=== PATIENT | female | born 1940 | race Caucasian/White ===

== ENCOUNTER 2023-05-09 15:02 | Outpatient (RCR) | payer OTHER, SELFPAY | END 2023-05-09 23:59 | disposition home or self-care (01) | LOC: RPT 15:02 | PROVIDERS: ATTENDING PHYSICIAN Student in an Organized Health Care Education/Training Program; FAMILY PHYSICIAN Internal Medicine | DX: Z47.89 Encounter for other orthopedic aftercare (principal); R26.2 Difficulty in walking, not elsewhere classified | CPT/HCPCS: 97010; 97110; 97140 ==

== ENCOUNTER 2023-06-11 14:09 | Outpatient (RCR) | payer OTHER, SELFPAY | END 2023-06-13 23:59 | disposition home or self-care (01) | LOC: RPT 14:09 | PROVIDERS: ATTENDING PHYSICIAN Pain Medicine Interventional Pain Medicine; FAMILY PHYSICIAN Internal Medicine | DX: M54.12 Radiculopathy, cervical region (principal); M54.16 Radiculopathy, lumbar region; Z73.6 Limitation of activities due to disability; M62.81 Muscle weakness (generalized); Z98.1 Arthrodesis status | CPT/HCPCS: 97110; 97112; 97140; 97163 ==

== ENCOUNTER 2023-06-13 12:47 | Outpatient (RCR) | payer OTHER, SELFPAY | END 2023-06-13 23:59 | disposition home or self-care (01) | LOC: RPT 12:47 | PROVIDERS: ATTENDING PHYSICIAN Student in an Organized Health Care Education/Training Program; FAMILY PHYSICIAN Internal Medicine | DX: Z47.89 Encounter for other orthopedic aftercare (principal) | CPT/HCPCS: 97110; 97140 ==

== ENCOUNTER 2023-06-18 09:00 | Outpatient (RCR) | payer OTHER, SELFPAY | END 2023-06-18 23:59 | disposition home or self-care (01) | LOC: RPT 09:00 | PROVIDERS: ATTENDING PHYSICIAN Pain Medicine Interventional Pain Medicine; FAMILY PHYSICIAN Internal Medicine | DX: Z47.89 Encounter for other orthopedic aftercare (principal) | CPT/HCPCS: 97010; 97110; 97140 ==

== ENCOUNTER 2023-07-03 10:46 | Outpatient (RCR) | payer OTHER, SELFPAY | END 2023-07-03 23:59 | disposition home or self-care (01) | LOC: RPT 10:46 | PROVIDERS: ATTENDING PHYSICIAN Student in an Organized Health Care Education/Training Program; FAMILY PHYSICIAN Internal Medicine | DX: Z47.89 Encounter for other orthopedic aftercare (principal); Z73.6 Limitation of activities due to disability; R26.2 Difficulty in walking, not elsewhere classified; M62.81 Muscle weakness (generalized) | CPT/HCPCS: 97110; 97112; 97140 ==

== ENCOUNTER → 2023-08-14 14:31 | Outpatient (REF) | payer OTHER, SELFPAY | LOC: PAVMRI 14:31 | PROVIDERS: ATTENDING PHYSICIAN Psychiatry & Neurology Neurology; FAMILY PHYSICIAN Internal Medicine | DX: M54.50 Low back pain, unspecified (principal); M54.17 Radiculopathy, lumbosacral region | CPT/HCPCS: 72158; A9575 ==

== ENCOUNTER → 2023-10-19 13:28 | Outpatient (REF) | payer OTHER, SELFPAY | LOC: WDC 13:28 | PROVIDERS: ATTENDING PHYSICIAN Family Medicine | DX: Z12.31 Encounter for screening mammogram for malignant neoplasm of breast (principal); Z78.0 Asymptomatic menopausal state | CPT/HCPCS: 77080 ==

== ENCOUNTER → 2023-10-22 09:15 | Outpatient (REF) | payer OTHER, SELFPAY | LOC: RCS 09:15 | PROVIDERS: ATTENDING PHYSICIAN Family Medicine | DX: R00.2 Palpitations (principal) | CPT/HCPCS: 93225; 93226 ==

== ENCOUNTER → 2023-10-29 07:21 | Outpatient (REF) | payer OTHER, SELFPAY | LOC: HWRCS 07:21 | PROVIDERS: ATTENDING PHYSICIAN Family Medicine | DX: R00.2 Palpitations (principal); I34.1 Nonrheumatic mitral (valve) prolapse | CPT/HCPCS: 93306 ==

== ENCOUNTER 2024-03-28 05:16 | Emergency (ER) | payer OTHER, SELFPAY ==
[2024-03-28 05:19] VITALS: BP 121/76
--- NOTE | 2024-03-28 06:08 | ED.GENMED ---
History of Present Illness
<Radha Coleman MD, Resident - Last Filed: 03/28/24 08:45>
General
Chief Complaint: Abdominal Pain
Source: patient
Exam Limitations: none
Time Seen by Provider: 03/28/24 06:03
Nursing documentation reviewed up to this point in time: agreed with
History of Present Illness
History of Present Illness:
83-year-old female with past medical history significant for chronic back pain, ex-smoker, COVID, impaired vision presents to the hospital for evaluation of sudden onset left-sided abdominal pain. Her pain started about 2 days ago, sharp shooting,
intermittent, radiating into the right side of her abdomen occasionally, initially tolerable but 10/10 in intensity overnight which brought her to the emergency room. Her abdominal pain is associated with nausea but no emesis, and bowel movements
that are black and tarry in color. Her last meal was yesterday night, and her last bowel movement was yesterday morning. She she feels mildly bloated and burps occasionally over the last 2 days. However she denies having fevers, chills, sick
contacts, headaches, chest pain, palpitations, shortness of breath, syncopal or near syncopal episodes, bladder habit changes.
She reports to have chronic back pain and does not know if her back pain is causing her abdominal pain.
She traveled to [facility] for 2 weeks and return from her trip 2 weeks ago, her flights for 17 hours long.
If applicable-neuro sx onset
Onset of symptoms known: No
Time pt last seen normal is known: No
Past History
<Radha Coleman MD, Resident - Last Filed: 03/28/24 08:45>
Past History
ED Past Medical History: Other (Chronic back pain, COVID)
ED Past Surgical History: Other (Bilateral total knee replacement, back surgeries times 07/02/1992, 2005, tubal ligation, tonsillectomy, foot surgery on the left.)
Patient has exhibited threatening behavior?: No
Social History
Tobacco: Former smoker
Alcohol: Occasional
Drug: None
Personal:
Living: with family
Employment: Retired
Family History
Family History: Other (Not pertinent)
Review of Systems
<Radha Coleman MD, Resident - Last Filed: 03/28/24 08:45>
Review of Systems
Allergies reviewed?: Yes
Constitutional: Reports no symptoms
EENT: Reports no symptoms
Respiratory: Reports no symptoms
Cardiac: Reports no symptoms
ABD/GI: Reports abdominal pain, nausea and black stools
: Reports no symptoms
Musculoskeletal: Reports neck pain (radiating into her left arm.) and back pain
Skin: Reports no symptoms
Neurological: Reports no symptoms
Endocrine: Reports no symptoms
Hematologic/Lymphatic: Reports no symptoms
Psychiatric: Reports no symptoms
Phy Exam
<Radha Coleman MD, Resident - Last Filed: 03/28/24 08:45>
General Physical Exam
General Presentation: well appearing and no apparent distress
General Skin: warm
General Habitus: normal
General Mental: alert
General Hydration: appears well hydrated
ENT Exam
ENT Exam: pharynx normal and neck supple
Cardiovascular Exam
Cardiovascular Exam: regular rate/rhythm, no edema, no gallop, no murmur and normal peripheral pulses
Heart Sounds: normal
Pulmonary Exam
Pulmonary Exam: lungs clear, no respiratory distress, no rales, no crackles and no rhonchi
Gastrointestinal Exam
Gastrointestinal Exam: normal bowel sounds, non tender, soft, no pulsatile mass and non distended
Rectal Exam: normal sphincter tone, hemorrhoids and soft stool
Stool: brown
Guaiac Status: negative
Neurological Exam
Neurological Exam: alert and no motor deficits
Musculoskeletal Exam
Musculoskeletal Exam: neck pain
Course
<Radha Coleman MD, Resident - Last Filed: 03/28/24 08:45>
Orders/Labs/Results
Orders:
Orders
03/28/24 05:29
IV Insert/Care/Rem.- Treatment PRN
Urinalysis Reflex To Culture Urgent
Date Specimen was Collected: 03/28/24
Time Specimen was Collected: 05:29
03/28/24 06:12
Complete Blood Count/With Diff Urgent
Comprehensive Metabolic Panel Urgent
Lipase Urgent
03/28/24 06:46
CT Abd/pelvis W Iv Cont Urgent
Comment:
Reason For Exam: LLQ pain
Ketorolac [Toradol] 15 mg IV NOW STA
Abnormal Lab Results
03/28/24
06:12
WBC 12.0 H 10^3/uL
(4.8-10.8)
Absolute Neuts (auto) 9.7 H 10^3/uL
(1.4-6.5)
Absolute Monos (auto) 1.0 H 10^3/uL
(0.1-0.6)
Neutrophils % 80.7 H %
(42.2-75.2)
Lymphocytes % 10.0 L %
(20.5-51.1)
BUN 20 H mg/dl
(7-17)
Glucose 112 H mg/dl
(70-99)
AST 51 H U/L
(14-36)
ALT 42 H U/L
(0-35)
03/28/24 06:12
03/28/24 06:12
Vital Signs
Initial and Last Documented VS:
Initial Vital Signs
Temp Pulse Resp BP Pulse Ox
99.1 F 86 20 121/76 97
03/28/24 05:19 03/28/24 05:19 03/28/24 05:19 03/28/24 05:19 03/28/24 05:19
Last Documented Vital Signs
Temp Pulse Resp BP Pulse Ox
99.1 F 76 16 118/72 95
03/28/24 05:19 03/28/24 06:57 03/28/24 06:57 03/28/24 08:00 03/28/24 08:00
<Sundeep Sinha MD - Last Filed: 03/28/24 09:32>
Orders/Labs/Results
Orders:
Orders
03/28/24 05:29
IV Insert/Care/Rem.- Treatment PRN
Urinalysis Reflex To Culture Urgent
Date Specimen was Collected: 03/28/24
Time Specimen was Collected: 05:29
03/28/24 06:12
Complete Blood Count/With Diff Urgent
Comprehensive Metabolic Panel Urgent
Lipase Urgent
03/28/24 06:46
CT Abd/pelvis W Iv Cont Urgent
Comment:
Reason For Exam: LLQ pain
Ketorolac [Toradol] 15 mg IV NOW STA
Abnormal Lab Results
03/28/24
06:12
WBC 12.0 H 10^3/uL
(4.8-10.8)
Absolute Neuts (auto) 9.7 H 10^3/uL
(1.4-6.5)
Absolute Monos (auto) 1.0 H 10^3/uL
(0.1-0.6)
Neutrophils % 80.7 H %
(42.2-75.2)
Lymphocytes % 10.0 L %
(20.5-51.1)
BUN 20 H mg/dl
(7-17)
Glucose 112 H mg/dl
(70-99)
AST 51 H U/L
(14-36)
ALT 42 H U/L
(0-35)
03/28/24 06:12
03/28/24 06:12
Vital Signs
Initial and Last Documented VS:
Initial Vital Signs
Temp Pulse Resp BP Pulse Ox
99.1 F 86 20 121/76 97
03/28/24 05:19 03/28/24 05:19 03/28/24 05:19 03/28/24 05:19 03/28/24 05:19
Last Documented Vital Signs
Temp Pulse Resp BP Pulse Ox
99.1 F 76 16 118/72 95
03/28/24 05:19 03/28/24 06:57 03/28/24 06:57 03/28/24 08:00 03/28/24 08:00
<Radha Coleman MD, Resident - Last Filed: 03/28/24 08:45>
MDM/Problems Addressed
Differential Diagnosis Includes:
Diverticulitis, colitis, pancreatitis, constipation with fecal impaction, bowel perforation, volvulus, ileus.
MDM/Problems Addressed:
Pain addressed with IV Toradol.
CT abdomen and pelvis with IV contrast ordered.
Chronic conditions affecting care: Other
Acute Exacerbation and/or Progression of Chronic Illness: Other
<Radha Coleman MD, Resident - Last Filed: 03/28/24 08:45>
*Radiology
Radiology exam reviewed: preliminary read by ED provider and radiology read reviewed
*Pulse Oximetry
Patient hypoxic: no
*EKG
Interpreted by ED Provider?: NA
*Barber Tool Sharpener Interpretation
Rate: normal
Interpretation: normal
*Critical Care Note
Total Time (30-74mins, 75-104mins- exclusive of procedures): Not Applicable
<Radha Coleman MD, Resident - Last Filed: 03/28/24 08:45>
Update Note
Update Note:
Patient has mild leukocytosis with elevated white blood cell count at 12, AST and ALT are mildly elevated to 51, 42, lipase is within normal limits.
CT abdomen and pelvis with IV contrast showed evidence for acute diverticulitis with pericolonic fluid. Diagnosis - acute diverticulitis
ED Attending Note
<Radha Coleman MD, Resident - Last Filed: 03/28/24 08:45>
-
Portions of this chart may have been created with voice recognition software.� Occasional wrong word or��sound alike� substitutions may have occurred due to the inherent limitations of voice recognition software.
<Sundeep Sinha MD - Last Filed: 03/28/24 09:32>
ED Attending Note
Patient seen and examined by attending physician: Yes
ED Attending Note:
Patient presents to ED secondary to intermittent left-sided abdominal pain, which has worsened over the past 12 hours. Denies fever or chills. Abdominal pain described as sharp, nonradiating, without any alleviating or exacerbating factors.
Denies trauma. Denies nausea, vomiting, or diarrhea. However, patient does state that her stool appears to be dark with cream mixture. Denies recent change in medications or diet. Denies previous history of similar symptoms. Denies recent
illness. Denies recent trauma. Denies difficulty urination. Denies recent travel. Denies recent sick contact.
Physical Exam
General: mild painful distress, not acutely ill. afebrile
Head: nc/at. eomi
Neck: supple. no meningeal signs.
Heart: s1/s2 regular rate and rhythm, no murmur. equal radial pulses.
Lungs: no acute respiratory distress. clear bilaterally
Abdomen: normal bowel sounds. mild LLQ tenderness to palpation, without rebound/guarding. mild distention noted.
Neuro: alert and oriented. no focal neurological deficits
Skin: no rash
Psychiatric: well kept. interactive and cooperative
Extremities: no edema. no calf tenderness.
History, exam, and CT scan consistent with acute diverticulitis, without any evidence of perforation or abscess formation. Patient otherwise remains afebrile, helically stable, and nontoxic-appearing. As such, after discussion with patient and
family, decision made to discharge patient home with antibiotics. Advised to return to ED with worsening symptoms, i.e. fever/worsening pain/vomiting.
Discharge Plan
Departure
Patient Disposition: Home (Routine Discharge)
Date of Disposition: 03/28/24
Time of Disposition: 08:41
Patient with high blood pressure during this ER visit?: Yes
Condition: Good
Discharge Problem:
Acute diverticulitis
Instructions: Clear Liquid Diet, Diverticulitis (DC)
Prescriptions:
New
amoxicillin-pot clavulanate 875-125 mg tablet
1 tab PO BID 10 Days Qty: 20 0RF
Referrals:
Yenni Smart MD [Family Provider] -
Activity Restrictions/Additional Instructions:
Please be on clear liquid diet for first 24 hours.
Start taking Augmentin 2 times a day.
Switch to low residue diet after first 24 to 48 hours and advance your diet as tolerated.
Follow-up with your primary care physician in 1 week.
However if you develop severe abdominal pain with nausea and emesis, or abdominal distention, or no bowel movements in next 48 hours please visit back to the emergency room.
Interventions
Interventions:
*Risk Screen - Suicide Last Done: 03/28/24 05:19
*General Assessment Last Done: 03/28/24 06:01
*Neglect/Abuse Screening Last Done: 03/28/24 05:19
ED- Fall Risk Assessment Last Done: 03/28/24 06:01
*ED COVID-19 Vaccine History Last Done: 03/28/24 05:19
*Nursing Disposition Last Done: 03/28/24 08:56
SG-Zxrbwj-Kgclabvfhu Assessment Last Done: 03/28/24 07:12
Discharge Date and Time
Discharge Date/Time: 03/28/24 08:57
Print Language: CHILEAN
[2024-03-28 06:11] VITALS: BMI 25.2
[2024-03-28 06:52] LABS: % Basophils 0.2 % (0-2); % Eosinophils 0.7 % (0-6); % Immature Granulocytes 0.3 % (0-0.5); % Monocytes 8.1 % (1.7-9.3); % Neutrophils 80.7 % (42.2-75.2); Absolute Eosinophils 0.1 10^3/uL (0-0.7); Absolute Lymphocytes 1.2 10^3/uL (1.2-3.4); Absolute Neutrophils 9.7 10^3/uL (1.4-6.5); Hematocrit 42.3 % (37.0-47.0); Hemoglobin 14.3 g/dL (12.0-16.0); Mean Corp Hgb Conc. 33.8 g/dL (33.0-37.0); Mean Corpuscular Hgb 30.8 pg (27.0-31.0); Mean Corpuscular Volume 91.2 fL (81.0-99.0); Mean Platelet Volume 9.2 fL (7.4-10.4); Nucleated Red Blood Cells % 0 %; Platelet Count 341 10^3/uL (130-400); Red Blood Cell Count 4.64 10^6/uL (4.20-5.40); Red Cell Dist. Width 13.2 % (11.5-14.5)
[2024-03-28] MEDS: TORADOL 15 MG IV (06:52)
[2024-03-28 06:54] LABS: ALT (SGPT) 42 U/L (0-35); AST (SGOT) 51 U/L (14-36); Albumin 4.3 g/dl (3.5-5.0); Alkaline Phosphatase 94 U/L (38-126); Blood Urea Nitrogen 20 mg/dl (7-17); Carbon Dioxide 23 mmol/L (22-30); Chloride 104 mmol/L (98-107); Estimated Creatinine Clearance 70 ml/min; Glucose 112 mg/dl (70-99); Lipase 102 U/L (23-300); Potassium 4.2 mmol/L (3.5-5.1); Sodium 139 mmol/L (135-145); Total Bilirubin 0.7 mg/dl (0.2-1.3); Total Protein 6.9 g/dl (6.3-8.2); eGFR > 60.00
[2024-03-28 06:57] VITALS: BP 147/91
[2024-03-28 07:00] VITALS: BP 119/68
[2024-03-28 07:33] VITALS: BP 119/68
[2024-03-28 08:00] VITALS: BP 118/72
== END 2024-03-28 08:57 | disposition home or self-care (01) ==
LOC: EMR 05:16
PROVIDERS: Student in an Organized Health Care Education/Training Program; EMERGENCY PHYSICIAN Emergency Medicine; FAMILY PHYSICIAN Family Medicine
DX: R10.9 Unspecified abdominal pain (principal); G89.29 Other chronic pain; Z86.16 Personal history of COVID-19; Z87.891 Personal history of nicotine dependence; Z96.653 Presence of artificial knee joint, bilateral; Z98.1 Arthrodesis status; Z98.51 Tubal ligation status
CPT/HCPCS: 99284; 96374; 74177; 80053; 83690; 85025; Q9967

== ENCOUNTER → 2024-10-22 10:11 | Outpatient (REF) | payer OTHER, SELFPAY | LOC: HWRAD 10:11 | PROVIDERS: ATTENDING PHYSICIAN Psychiatry & Neurology Neurology; FAMILY PHYSICIAN Family Medicine | DX: M46.1 Sacroiliitis, not elsewhere classified (principal); M25.859 Other specified joint disorders, unspecified hip | CPT/HCPCS: 72170; 72220 ==

== ENCOUNTER → 2024-10-27 14:19 | Outpatient (REF) | payer OTHER, SELFPAY | LOC: HWRAD 14:19 | PROVIDERS: ATTENDING PHYSICIAN Psychiatry & Neurology Neurology; FAMILY PHYSICIAN Family Medicine | DX: M46.1 Sacroiliitis, not elsewhere classified (principal) | CPT/HCPCS: 72192 ==

== ENCOUNTER 2024-10-29 13:21 | Inpatient (IN) | payer OTHER, SELFPAY ==
[2024-10-29] VITALS (22 sets, daily range): BP systolic 81–127; BP diastolic 51–103; BMI 25.1; BMI 24.7
--- NOTE | 2024-10-29 09:36 | ED.GENMED ---
History of Present Illness
General
Chief Complaint: Dizziness
Time Seen by Provider: 10/29/24 09:25
History of Present Illness
History of Present Illness:
83-year-old female with history of hypertension and recently diagnosed A-fib presents to the emergency department for evaluation of intermittent episodes of dizziness, heart palpitations, and chest pressure that been occurring frequently since the
end of September. She saw her primary care physician for this and was started on Eliquis on October 14, promptly followed up with cardiology and was started on metoprolol approximately 1 week ago. She took her medications as scheduled this morning. Current
symptoms of been ongoing since 730 this morning. No current chest pain or dyspnea.
She DID take her Eliquis and metoprolol this AM
Past History
Past History
ED Past Medical History: Other (Chronic back pain, COVID)
ED Past Surgical History: Other (Bilateral total knee replacement, back surgeries times 07/02/1992, 2004, tubal ligation, tonsillectomy, foot surgery on the left.)
Patient has exhibited threatening behavior?: No
Social History
Tobacco: Former smoker
Alcohol: Occasional
Drug: None
Personal:
Living: with family
Employment: Retired
Family History
Family History: Other (Not pertinent)
Review of Systems
Review of Systems
Allergies reviewed?: Yes
All Other Systems: ROS reviewed and negative except as documented in HPI and ROS
Phy Exam
Physical Exam
Physical Exam:
GEN: Well appearing, NAD, WDWN
HEENT: Oral mucosa moist, no scleral icterus
Cardiac: Irregular and tachycardic, no murmur
Lung: No respiratory distress, no tachypnea, lungs clear to auscultation bilaterally
MSK: No gross deformity or injuries
Skin: Good color, no pallor or jaundice, no rashes
Neuro: AO x3, moves all extremities freely
Psych: Calm, cooperative
Course
Orders/Labs/Results
Orders:
Orders
10/29/24 09:06
ECG [Electrocardiogram (*1)] Urgent
Reason for Study: Vertigo / Dizzy
EKG- Treatment ONCE
10/29/24 09:35
0.9% Sodium Chloride 1000 ml [Nss] 1,000 ml IV BOLUS
Diltiazem 125 mg/125 ml Nss [Cardizem] 125 mg in 125 ml .ROUTE .STK-MED
Diltiazem HCl [Cardizem] 10 mg IV NOW STA
Diltiazem HCl [Cardizem] 25 mg .ROUTE .STK-MED ONE
10/29/24 09:38
CR Chest Portable - 1 View Urgent
Comment:
Reason For Exam: chest pain
Reason Study Needs to be Portable: Other
10/29/24 09:42
Complete Blood Count/With Diff Urgent
Comprehensive Metabolic Panel Urgent
Magnesium Urgent
10/29/24 09:45
Diltiazem 125 mg/125 ml Nss [Cardizem] 125 mg in 125 ml IV PER PROTOCOL
Initial dose in mg/hr, then titrate:: 5
Titrate to keep:: Heart rate 80-100 bpm
Titrate by mg/hr:: 5 mg/hr
Frequency of titrations (minutes):: 15
Maximum dose in mg/hr:: 15
Abnormal Lab Results
10/29/24
09:42
Monocytes % 10.6 H %
(1.7-9.3)
Chloride 111 H mmol/L
(98-107)
BUN 18 H mg/dl
(7-17)
10/29/24 09:42
10/29/24 09:42
Vital Signs
Initial and Last Documented VS:
Initial Vital Signs
Temp Pulse Resp Pulse Ox
97.6 F 85 18 99
10/29/24 09:09 10/29/24 09:09 10/29/24 09:09 10/29/24 09:09
Last Documented Vital Signs
Temp Pulse Resp BP Pulse Ox
97.6 F 124 25 127/86 97
10/29/24 09:09 10/29/24 10:16 10/29/24 10:16 10/29/24 10:16 10/29/24 10:15
MDM/Problems Addressed
MDM/Problems Addressed:
83-year-old female presenting with recurrent rapid atrial fibrillation. This diagnosis is due to her within the past month. She is not a cardioversion candidate on the basis of short-term anticoagulant use to be better suited to undergo
cardioversion with a ADELINA if indicated. She was started on rate control with IV diltiazem, initially had hypotension but this resolved as rate stabilized. Will admit to the hospitalist service for further management
Comment
Comment:
EKG independently interpreted by me shows a rapid atrial fibrillation
*Pulse Oximetry
SaO2: 99
Oxygen Mode of Delivery: Room air
Patient hypoxic: no
*Critical Care Note
Total Time (30-74mins, 75-104mins- exclusive of procedures): 30 minutes
comment:
Critical care time: 30 minutes
Critical care time was exclusive of: Separately billable procedures, treating other patients, and teaching time
Critical care was necessary to treat or prevent imminent or life-threatening deterioration of the following conditions: Rapid atrial fibrillation requiring IV rate control
Critical care time spent personally by me on the following activities:
[x] Review of old charts
[x] Obtaining history from patient or surrogate
[x] Ordering and review of the laboratory studies
[x] Ordering and review of radiographic studies
[x] Ordering and performing treatments and interventions
[x] Patient patient's response to treatment
[x] Development of treatment plan with patient or surrogate
ED Attending Note
-
Portions of this chart may have been created with voice recognition software.� Occasional wrong word or��sound alike� substitutions may have occurred due to the inherent limitations of voice recognition software.
Discharge Plan
Departure
Patient Disposition: Admit
Date of Disposition: 10/29/24
Time of Disposition: 10:56
Admit to: IMU
Presentation/result/management discussed w/ accepting MD/DO: Hospitalist
Discharge Problem:
Atrial fibrillation with RVR
Prescriptions:
No Action
metoprolol succinate 25 mg Tablet Extended Release 24 Hr
25 mg PO DAILY
Eliquis 2.5 mg Tablet
2.5 mg PO BID
naproxen sodium [Aleve] 220 mg Tablet
220 mg PO BIDPRN PRN (Reason: back pain)
magnesium glycinate 100 mg Tablet
400 mg PO HS
Referrals:
Yenni Smart MD [Family Provider, Family Practice]
Interventions
Interventions:
*Risk Screen - Suicide Last Done: 10/29/24 09:48
*General Assessment Last Done: 10/29/24 09:46
*Neglect/Abuse Screening Last Done: 10/29/24 09:48
*ED- Fall Risk Assessment Last Done: 10/29/24 09:46
*ED COVID-19 Vaccine History Last Done: 10/29/24 09:46
ED- Neurological Assessment Last Done: 10/29/24 09:31
ED- Cardiac Assessment Last Done: 10/29/24 09:31
Discharge Date and Time
Print Language: HAITIAN
[2024-10-29] MEDS: NSS 1000 IV (09:38)
[2024-10-29] MEDS: CARDIZEM 10 MG IV (09:38)
[2024-10-29] MEDS: CARDIZEM 125 IV (09:39)
[2024-10-29 09:51] LABS: % Basophils 0.9 % (0-2); % Eosinophils 2.6 % (0-6); % Immature Granulocytes 0.2 % (0-0.5); % Lymphocytes 31.8 % (20.5-51.1); % Monocytes 10.6 % (1.7-9.3); % Neutrophils 53.9 % (42.2-75.2); Absolute Basophils 0.1 10^3/uL (0-0.2); Absolute Eosinophils 0.1 10^3/uL (0-0.7); Absolute Lymphocytes 1.7 10^3/uL (1.2-3.4); Absolute Monocytes 0.6 10^3/uL (0.1-0.6); Absolute Neutrophils 2.9 10^3/uL (1.4-6.5); Hematocrit 41.2 % (37.0-47.0); Hemoglobin 14.1 g/dL (12.0-16.0); Mean Corp Hgb Conc. 34.2 g/dL (33.0-37.0); Mean Corpuscular Hgb 30.4 pg (27.0-31.0); Mean Corpuscular Volume 88.8 fL (81.0-99.0); Mean Platelet Volume 8.9 fL (7.4-10.4); Nucleated Red Blood Cells % 0 %; Platelet Count 325 10^3/uL (130-400); Red Blood Cell Count 4.64 10^6/uL (4.20-5.40); White Blood Cell Count 5.4 10^3/uL (4.8-10.8)
[2024-10-29 10:05] LABS: ALT (SGPT) 18 U/L (0-35); AST (SGOT) 21 U/L (14-36); Alkaline Phosphatase 72 U/L (38-126); Blood Urea Nitrogen 18 mg/dl (7-17); Calcium 10.2 mg/dl (8.4-10.2); Carbon Dioxide 25 mmol/L (22-30); Chloride 111 mmol/L (98-107); Estimated Creatinine Clearance 47 ml/min; Glucose 94 mg/dl (70-99); Magnesium 2.2 mg/dl (1.6-2.3); Potassium 4.1 mmol/L (3.5-5.1); Sodium 141 mmol/L (135-145); Total Bilirubin 0.7 mg/dl (0.2-1.3); Total Protein 6.5 g/dl (6.3-8.2); eGFR > 60.00
--- NOTE | 2024-10-29 11:57 | CM ---
CM reviewed chart and met with pt bedside in ED along with her . Lives with in multistory home, 2 [address], half bath first floor, BR second floor, has stair glide.
Independent in ADLs and personal care at baseline, still driving. Ambulates independently at baseline.
No hx VN/SNF.
will transport home at ms.
PCP: Yenni Smart
Pharmacy: [facility] in [place]
Discharge plan: Anticipate home, watch for needs
[2024-10-29 14:11] LABS: Troponin I < 0.012 ng/ml
--- NOTE | 2024-10-29 14:15 | PTCARENOTE ---
Received pt from ED. Monitor showing afib, hr 80-90. VSS. Cardizem drip infusing at 7.5mg/hr. Denies dizziness at present. Denies chest pain, palpitations, shortness of breath at present. Family at bedside, oriented to room, call winslow in reach.
--- NOTE | 2024-10-29 14:30 | CON.CAR ---
Addendum entered and electronically signed by Justyn Mccracken MD 10/29/24 15:18:
I saw and examined the patient.
The Food Counter Attendant's note was reviewed and I agree with the note.
Comment:
GEN: No distress, awake, Ox3
HEENT: supple, anicteric, mmm
LUNGS: CTA, no wheezes/rales
CV: Irreg, S1/S2, 1/6 syst LSB, no gallop
ABD: soft, BS+, NT/ND
EXT: No edema
NEURO: Gross non-focal
SKIN: No rash
Plan:
83-year-old female well-known to me with past medical history of paroxysmal atrial fibrillation and hyperlipidemia. I saw her in the office 1 week ago and Toprol 25 mg daily was initiated. Plan was for stress testing and eventual consideration for
ADELINA cardioversion. Patient presented with progressive palpitations, chest pains, shortness of breath, and chest pressure. Different symptoms felt worse and she came to emergency room. She was placed on a Cardizem drip and her symptoms have
improved. Her troponin is negative
With continued chest pains plan will be for Lexiscan nuclear stress test in AM. If stress test has no clear ischemia we will then proceed with ADELINA cardioversion on Sunday.
Will continue Cardizem drip for now. Will need further titration of her metoprolol after stress testing. Continue Eliquis 5 mg p.o. twice daily.
We began discussing if she has recurrent atrial fibrillation that she would be a good candidate for antiarrhythmic therapy or ablation.
Check TSH
Reviewed recent echo which has a preserved ejection fraction and only mild valvular disease.
Discussed treatment plan at length with patient and family
Original Note:
Consultation
Consultation Request
Date/Time Consultation Requested: 10/29/24
Date/Time Consultation Performed: 10/29/24
Requesting Provider: Dr. Keven Gold
Performing Provider: Dr. Mccracken
Reason for Consultation: Afib with RVR, chest pain
Medical History
-
History of Present Illness:
Patient came to [facility] ER with palpitations and chest pressure that were sustained this morning, cardiology is now consulted. Patient saw her PCP back on 10/14/2024 for symptoms of palpitations and ECG at that time captured A-fib which was new
diagnosis. Patient was started on Eliquis and then followed up with cardiology on 10/21/2024 where she remained in A-fib and was started on Toprol XL 25 mg daily. Patient also complained of chest pressure and was set up for stress test that is
scheduled in November. Patient came to the ER this morning with symptoms of heart pounding palpitations and also chest pressure radiating up into her neck chin and teeth, instead of coming and going quickly as previous symptoms did these were more
sustained and so she came to the ER. Currently feels better with Cardizem gtt and heart rate that was 140 initially has slowed to the 80s.
PMH:
Paroxysmal Afib
Chronic Eliquis OAC started 10/14/24
Hyperlipidemia
Past Medical History
Past Medical History: Other (in HPI)
Past Surgical History: Other (in HPI)
Social History
Tobacco: Former Smoker
Alcohol: Occasional (a couple a week)
Drug: None
Personal:
Living: With Family
Family History
Family History: CAD and Cancer
Allergies / Home Medications
Allergy/AdvReac Type Severity Reaction Status Date / Time
No Known Allergies Allergy Verified 10/29/24 09:09
�Medication �Instructions �Recorded �Confirmed �Type
apixaban 2.5 mg tablet (Eliquis) 2.5 mg PO BID 10/29/24 10/29/24 History
magnesium glycinate 100 mg (as 400 mg PO HS 10/29/24 10/29/24 History
glycinate) tablet
metoprolol succinate 25 mg 25 mg PO DAILY 10/29/24 10/29/24 History
tablet,extended release 24 hr
naproxen sodium 220 mg tablet 220 mg PO BIDPRN PRN back pain 10/29/24 10/29/24 History
(Aleve)
Review of Systems
-
History Source: Patient and Family ()
All other systems: Negative unless noted
Physical Exam
Vital Signs
Temp Pulse Resp BP Pulse Ox
97.7 F 86 18 105/61 97
10/29/24 14:05 10/29/24 14:05 10/29/24 14:05 10/29/24 13:30 10/29/24 14:05
GEN: NAD. AAOx3
HEENT: EOMI, MMM
LUNGS: RA. Clear anterolaterally without wheeze
CV: Afib on tele. Irreg irreg, no murmur
ABD: ND
EXT: No edema B/L LE
NEURO: Gross non-focal
SKIN: No rash
Lab Results
10/29/24 09:42
10/29/24 09:42
Troponin I < 0.012 ng/ml 10/29/24 13:37
Impression / Plan
-
PCP: Dr. Yenni Ellsworth
Card: Dr. Mccracken
Impression:
Admitted with Afib in RVR and chest pain
Chest pain
Paroxysmal Afib with RVR on admission
new diagnosis 10/14/24
Chronic Eliquis OAC started 10/14/24
Hyperlipidemia
Echo 10/29/2023: EF 55-60, normal RV systolic function, normal atrial dimensions with mildly dilated coronary sinus, aortic sclerosis without stenosis, trivial MR, mild TR with PAP 29 mmHg, LV wall 0.9 cm
Plan:
- Patient came to [facility] ER with palpitations and chest pressure that were sustained this morning, cardiology is now consulted. Patient saw her PCP back on 10/14/2024 for symptoms of palpitations and ECG at that time captured A-fib which was new
diagnosis. Patient was started on Eliquis and then followed up with cardiology on 10/21/2024 where she remained in A-fib and was started on Toprol XL 25 mg daily. Patient also complained of chest pressure and was set up for stress test that is
scheduled in November. Patient came to the ER this morning with symptoms of heart pounding palpitations and also chest pressure radiating up into her neck chin and teeth, instead of coming and going quickly as previous symptoms did these were more
sustained and so she came to the ER. Currently feels better with Cardizem gtt and heart rate that was 140 initially has slowed to the 80s.
-ECG reviewed by me is A-fib with RVR and a heart rate in the 140s, nonspecific ST-T wave changes. Telemetry reviewed by me now shows A-fib with heart rate 85
-Patient with chest pressure in the setting of rapid A-fib. Check urgent troponin, ordered by me. ECG with nonspecific ST-T wave changes. Recheck troponin and ECG in 3 hours, ordered by me.
-If troponin is serially undetectable then we will proceed with Lexiscan nuclear stress test in a.m. and cancel outpatient test. If troponin level returns positive will trend and likely proceed towards cardiac cath. At this point we are not
stopping Eliquis OAC.
-Pending results of stress test we will plan on ADELINA/CV on 10/31/2024
-Patient has not missed any doses of her Eliquis 2.5 mg BID, but even though age is 83 she has normal renal function (Cre 0.9) and weight is 72 kg so corrected dose of Eliquis would be 5 mg BID. Orders changed by me. Patient will need ADELINA
regardless.
-We also discussed long-term rhythm control strategies including AAD or possible ablation. Specifically we discussed how ablation is not 100% effective at reducing symptomatic recurrence of atrial arrhythmia I does not necessarily mean that she can
stop all medications.
- Hold her usual dose of Toprol-XL 25 mg daily in the a.m. in anticipation of Lexiscan nuclear stress test, but would resume following stress test
--- NOTE | 2024-10-29 15:34 | HPS.HSE ---
Family Physician
-
Family Physician: Yenni Smart MD
Chief Complaint
-
afib rvr
History of Present Illness
83 female history of paroxysmal atrial fibrillation hyperlipidemia who presents with a 2-day history of chest pressure tightness radiating to the throat with associated dizziness palpitations and shortness of breath. On and off typically lasted for
5 to 10 minutes however this morning episode was persistent for couple of hours therefore presented to the hospital. Found to be in atrial fibrillation with RVR for which she was provided with IV fluids diltiazem pushes and started on a diltiazem
drip in the ER. Since then in and out of A-fib with RVR with rates ranging from 90-1 30s. Blood pressure stable.
Per who is at bedside states has taken metoprolol religiously along with Eliquis.
Former smoker quit 25 years ago. Drinks alcohol occasionally. No drug use
Past surgical history of bilateral knee replacements 2 back surgeries and left foot tendon repair.
Medical History
Past Medical History
Past Medical History: Reports Arrhythmia
Past Surgical History: Reports Orthopedic
Social History
Tobacco: Former Smoker
Alcohol: Occasional
Drug: None
Family History
Family History: Not pertinent
Allergies / Home Medications
Allergies reflects when Allergies were last updated in [facility].
Home Medications with original date entered in [facility]
Allergy/Medication List:
Allergies
Allergy/AdvReac Type Severity Reaction Status Date / Time
No Known Allergies Allergy Verified 10/29/24 09:09
Home Medications
apixaban 2.5 mg tablet (Eliquis) 2.5 mg PO BID 10/29/24
magnesium glycinate 100 mg (as glycinate) tablet 400 mg PO HS 10/29/24
metoprolol succinate 25 mg tablet,extended release 24 hr 25 mg PO DAILY 10/29/24
naproxen sodium 220 mg tablet (Aleve) 220 mg PO BIDPRN PRN back pain 10/29/24
Review of Systems
-
A 12 point ROS was completed and negative except as noted: Yes
Physical Exam
Vital Signs
Vital Signs
Temp Pulse Resp BP Pulse Ox
97.7 F 86 18 105/61 97
10/29/24 14:05 10/29/24 14:05 10/29/24 14:05 10/29/24 13:30 10/29/24 14:05
Physical Exam
General: Well Developed
Cardiac: Irregular Rhythm
Laboratory Results
-
10/29/24 09:42
10/29/24 09:42
Laboratory Results
Total Bilirubin 0.7 mg/dl (0.2-1.3) 10/29/24 09:42
AST 21 U/L (14-36) 10/29/24 09:42
ALT 18 U/L (0-35) 10/29/24 09:42
Alkaline Phosphatase 72 U/L (38-126) 10/29/24 09:42
Troponin I < 0.012 ng/ml 10/29/24 13:37
Impression/Plan
-
NAD
Scleral Anicteric
MMM
No JVD
CTABL
IRR, S1/S2
Soft, NT, ND, BS+
Warm, Dry
AAOx3
Calm
Atrial fibrillation with RVR
Telemetry monitoring
Admit to IVU
Continue beta-linda unless if discontinued by cardiology
Cardizem drip
Eliquis 5 mg twice a day. At home though takes 2.5 mg twice a day unclear as to why as yes she is 83 but she has abnormal renal function and weight is greater than 60 kg
Cardiology consult
Check troponin
--- NOTE | 2024-10-29 15:35 | CM ---
Reviewed chart. Met with Mrs. Bravo to review discharge plans. She states prior to admission she resides with her spouse in a two story home with two steps to enter. She states she has a full flight of steps to get to bedroom. She states she
has a stair glide to get to the second floor. She states she has a full bathroom on each level. She states prior to admission she was independent with ambulation and adls. She has a stair glide and no other DME in the home. She states she has a
prescription plan and uses [email or web address]. Medical work-up in progress. The discharge plan is to return home with her spouse when medically stable.
[2024-10-29 16:28] LABS: TSH 2.49 uIU/ml (0.47-4.68)
[2024-10-29 17:20] LABS: Troponin I < 0.012 ng/ml
[2024-10-29] MEDS: LIDOCAINE 4% PATCH 1 PATCH TOPICAL (17:53)
[2024-10-29] MEDS: ELIQUIS 5 MG PO (20:05)
--- NOTE | 2024-10-29 23:35 | PTCARENOTE ---
Patient noted to have four second pause on TELE monitor the converted to sinus bradycardia. Pt awake in alert in room and found to be asymptomatic. BP 110/77. Cardizem infusion stopped immediately. ARGENIS Giraldo notified. Pt HR noted to be the in
40-50's. Pt agreed to stay bedrest and ambulated only with staff assistance. Pt resting with call winslow in reach and plan of care ongoing.
[2024-10-30 03:07] VITALS: BP 117/68
[2024-10-30 03:08] VITALS: BP 117/68
[2024-10-30 03:16] VITALS: BMI 24.9
[2024-10-30 03:26] LABS: Hematocrit 37.6 % (37.0-47.0); Hemoglobin 12.6 g/dL (12.0-16.0); Mean Corp Hgb Conc. 33.5 g/dL (33.0-37.0); Mean Corpuscular Volume 89.5 fL (81.0-99.0); Mean Platelet Volume 8.8 fL (7.4-10.4); Platelet Count 296 10^3/uL (130-400); Red Cell Dist. Width 13.2 % (11.5-14.5); White Blood Cell Count 6.2 10^3/uL (4.8-10.8)
[2024-10-30 03:55] LABS: Blood Urea Nitrogen 20 mg/dl (7-17); Calcium 9.5 mg/dl (8.4-10.2); Carbon Dioxide 24 mmol/L (22-30); Chloride 114 mmol/L (98-107); Estimated Creatinine Clearance 70 ml/min; Glucose 102 mg/dl (70-99); Sodium 142 mmol/L (135-145); eGFR > 60.00
[2024-10-30 07:38] VITALS: BP 106/90
[2024-10-30] MEDS: LIDOCAINE 4% PATCH 1 PATCH TOPICAL (07:39)
[2024-10-30] MEDS: ELIQUIS 5 MG PO (07:39)
[2024-10-30] MEDS: LEXISCAN 0.4 MG IV (10:35)
[2024-10-30] MEDS: AMINOPHYLLINE 75 MG IV (10:45)
--- NOTE | 2024-10-30 11:40 | W.PN.CARDCBS ---
Addendum entered and electronically signed by Justyn Mccracken MD 10/30/24 11:54:
I saw and examined the patient.
The Lasting Machine Operator Hand Method's note was reviewed and I agree with the note.
Comment:
GEN: No distress, awake, Ox3
HEENT: supple, anicteric, mmm
LUNGS: CTA, no wheezes/rales
CV: Reg, S1/S2, /6 syst LSB, no gallop
ABD: soft, BS+, NT/ND
EXT: No edema
NEURO: Gross non-focal
SKIN: No rash
Plan:
Converted back to sinus rhythm. Lexiscan stress today
If stress without marked ischemia, would D/C on Eliquis and increase Toprol to 25mg po bid
Trop negative x2
Original Note:
Today's Communication / Plan
-
Await stress test results
In SR, continue Toprol 25mg BID, Eliquis 5mg BID
If stress test unremarkable, ok for discharge
Follow up arranged.
Impression / Plan
-
PCP: Dr. Yenni Ellsworth
Card: Dr. Mccracken
Impression:
Presented with chest pain and rapid afib
Paroxysmal Afib with RVR, spontaneously converted to SR
new diagnosis 10/14/24
Chronic Eliquis OAC started 10/14/24
Hyperlipidemia
Echo 10/29/2023: EF 55-60, normal RV systolic function, normal atrial dimensions with mildly dilated coronary sinus, aortic sclerosis without stenosis, trivial MR, mild TR with PAP 29 mmHg, LV wall 0.9 cm
Plan:
-Presented with chest pain, noted to be in rapid afib on arrival. Admitted for further workup and evaluation.
-Spontaneously converted to SR and remains in SR on review of tele this AM.
-Continue Eliquis 5mg BID for AC. No need for ADELINA/CV in AM.
-Continue Toprol at higher dose 25mg BID for rate control.
-Troponin negative x 2. s/p lexiscan stress test this AM. Await results.
-If stress test unremarkable, ok for discharge from cardiac standpoint.
-Follow up arranged
HPI: Patient came to [facility] ER with palpitations and chest pressure that were sustained this morning, cardiology is now consulted. Patient saw her PCP back on 10/14/2024 for symptoms of palpitations and ECG at that time captured A-fib which was new
diagnosis. Patient was started on Eliquis and then followed up with cardiology on 10/21/2024 where she remained in A-fib and was started on Toprol XL 25 mg daily. Patient also complained of chest pressure and was set up for stress test that is
scheduled in November. Patient came to the ER this morning with symptoms of heart pounding palpitations and also chest pressure radiating up into her neck chin and teeth, instead of coming and going quickly as previous symptoms did these were more
sustained and so she came to the ER. Currently feels better with Cardizem gtt and heart rate that was 140 initially has slowed to the 80s.
Progress Note - International Trade Compliance Manager
Subjective
Date of Service: October 30, 2024
Objective
Labs:
10/30/24 03:12
10/30/24 03:12
Labs
Hgb 12.6 g/dL (12.0-16.0) 10/30/24 03:12
Hct 37.6 % (37.0-47.0) 10/30/24 03:12
Plt Count 296 10^3/uL (130-400) 10/30/24 03:12
Sodium 142 mmol/L (135-145) 10/30/24 03:12
Potassium 4.0 mmol/L (3.5-5.1) 10/30/24 03:12
BUN 20 mg/dl (7-17) H 10/30/24 03:12
Creatinine 0.6 mg/dL (0.6-1.0) 10/30/24 03:12
Glucose 102 mg/dl (70-99) H 10/30/24 03:12
Troponins
10/29/24 10/29/24
13:37 16:48
Troponin I < 0.012 < 0.012
Vital Signs and I&O:
Vital Signs
Temp Pulse Resp BP Pulse Ox
97.6 F 55 16 117/68 97
10/30/24 07:37 10/30/24 07:00 10/30/24 07:37 10/30/24 03:08 10/30/24 07:37
Vital Signs
Temp Pulse Resp BP Pulse Ox
97.6 F 55 16 117/68 97
10/30/24 07:37 10/30/24 07:00 10/30/24 07:37 10/30/24 03:08 10/30/24 07:37
Intake & Output
10/28/24 10/29/24 10/30/24 10/31/24
06:59 06:59 06:59 06:59
Intake Total 480 / 480
Balance 480 / 480
Physical Exam
Physical Exam
GEN: NAD
LUNGS: RA
CV: SR on tele
--- NOTE | 2024-10-30 12:07 | PTCARENOTE ---
Lexiscan Stress test completed, Report called to IVU. Refer to Cardiac Services Monitoring Record for complete assessment and details.
[2024-10-30 12:11] VITALS: BP 123/72
--- NOTE | 2024-10-30 12:44 | CM ---
Reviewed chart. Met with Mrs Bravo and her spouse to review discharge plans. She states she is feeling well and maybe able to go home soon. Prior to admission she resides with her spouse in a two story home with two steps to enter. She has a
full flight of steps to get to bedroom/full bathroom. She has a stair glide to get to the second floor. She has a powder room on the first floor. Prior to admission she was independent with ambulation and adls. She has a stair glide at home and
no other DME in the home. She has a prescription plan and uses [facility]. Medical work-up in progress. The discharge plan is to return home with her spouse when medically stable.
[2024-10-30] MEDS: TOPROL XL 25 MG PO (12:59)
--- NOTE | 2024-10-30 13:26 | W.PN.HOSP.TC ---
Today's Communication/Plan
-
More than 30 minutes spent in discharge including
Final examination of the patient
Summarizing hospital stay
Instructions for continuing care to all relevant caregivers
Preparation of discharge records, prescriptions, and referral forms
Total time spent (in minutes): 33
Assessment / Plan
Assessment / Plan
NAD
Scleral Anicteric
MMM
No JVD
CTABL
RRR, S1/S2
Soft, NT, ND, BS+
Warm, Dry
AAOx3
Calm
Paroxysmal atrial fibrillation RVR, now back in sinus rhythm
Last dill drip
S/p stress test, per cardiology nonischemic, recommend discharge home on oral succinate 25 mg once a day
Eliquis 5 mg twice a day
Outpatient cardiology follow-up
Anticipated Discharge: Today
Subjective/Interval History
-
Date of Service: October 30, 2024
Seen and examined. No new complaints. No acute overnight events.
Objective Data
-
Labs:
Laboratory Results
10/30/24
03:12
WBC 6.2
Hgb 12.6
Hct 37.6
Plt Count 296
Sodium 142
Potassium 4.0
Chloride 114 H
Carbon Dioxide 24
BUN 20 H
Creatinine 0.6
Glucose 102 H
Calcium 9.5
Vital Signs:
Vital Signs
Temp Pulse Resp BP Pulse Ox
97.5 F 61 18 117/68 100
10/30/24 12:06 10/30/24 12:06 10/30/24 12:06 10/30/24 03:08 10/30/24 12:06
I&O
10/29/24 10/30/24 10/31/24
06:59 06:59 06:59
Intake Total 480 / 480
Balance 480 / 480
--- NOTE | 2024-10-30 14:30 | PTCARENOTE ---
IV and tele removed. Discharge instructions reviewed w/ pt and verbalizes understanding. Belongings collected and sent home w/ pt. Escorted via WC and staff assist to home w/ spouse.
--- NOTE | 2024-10-30 16:16 | W.DCSUMMARY ---
Discharge Summary
Discharge Data
Date of Admission: 10/29/24
Date of Discharge: 10/30/24
-
Pending Results: No
Hospital Course
83 female history of paroxysmal atrial fibrillation hyperlipidemia
Presented with findings of atrial fibrillation RVR started on IV medications to decrease heart rate and converted to sinus rhythm.. Was seen by cardiology and taken for stress test. As there was no significant ischemia therefore cardiology
recommended discharge home on Eliquis and twice daily metoprolol with outpatient cardiology follow-up.
CONCLUSION:
Lexiscan nuclear stress test reveals a small, mild, anterior perfusion defect which likely represents breast attenuation. There is no significant ischemia.
Systolic function is normal. The ejection fraction is 70%.
Stress Risk is moderate risk study (1 - 3% SC or /year) due to pharmacologic agent used.
No previous study available for comparison.
Was seen and examined the day of discharge. No new complaints. No acute overnight events.
States feels significantly better since being in sinus rhythm
Happy that her coronary arteries are not obstructed
Excited to go home
NAD
Scleral Anicteric
MMM
No JVD
CTABL
RRR, S1/S2
Soft, NT, ND, BS+
Warm, Dry
AAOx3
Calm
More than 30 minutes spent in discharge including
Final examination of the patient
Summarizing hospital stay
Instructions for continuing care to all relevant caregivers
Preparation of discharge records, prescriptions, and referral forms
Total time spent (in minutes): 33mins
Discharge Plan
-
Patient Disposition: Home (Routine Discharge)
Discharge Diagnosis/Procedures: Atrial fibrillation RVR
Condition: Good
Diet: As tolerated
Activity: As tolerated
Activity Restrictions/Additional Instructions:
Presented with findings of atrial fibrillation RVR started on IV medications to decrease heart rate and converted to sinus rhythm.. Was seen by cardiology and taken for stress test. As there was no significant ischemia therefore cardiology
recommended discharge home on Eliquis and twice daily metoprolol with outpatient cardiology follow-up.
CONCLUSION:
Lexiscan nuclear stress test reveals a small, mild, anterior perfusion defect which likely represents breast attenuation. There is no significant ischemia.
Systolic function is normal. The ejection fraction is 70%.
Stress Risk is moderate risk study (1 - 3% SC or /year) due to pharmacologic agent used.
No previous study available for comparison.
Referrals:
Yenni Smart MD [Family Provider, Family Practice]
Paulina Ayala CRNP [Specified Professional Personl, Cardiology] - 11/20/24 2:40 pm
Referral Note: You have a follow up visit with Dr. Mccracken's OPEN HEARTH WORKER, Paulina, at the [place] office. Please call with questions.
Additional Discharge Medication Instructions: Avoid taking naproxen, Aleve ibuprofen while on Eliquis as this increases GI bleeding risk
Stop Eliquis 2.5 mg twice a day and start taking Eliquis 5 mg twice a day indefinitely
Stop taking metoprolol 25 mg daily and start taking metoprolol succinate 25 mg twice a day indefinitely
Prescriptions:
New
Eliquis 5 mg Tablet
5 mg PO BID Qty: 60 0RF
metoprolol succinate 25 mg Tablet Extended Release 24 Hr
25 mg PO BID Qty: 60 0RF
pantoprazole [Protonix] 40 mg tablet,delayed release (DR/EC)
40 mg PO DAILY PRN (Reason: acid reduction) Qty: 60 0RF
Continued
magnesium glycinate 100 mg Tablet
400 mg PO HS
Discontinued
metoprolol succinate 25 mg Tablet Extended Release 24 Hr
25 mg PO DAILY
Eliquis 2.5 mg Tablet
2.5 mg PO BID
naproxen sodium [Aleve] 220 mg Tablet
220 mg PO BIDPRN PRN (Reason: back pain)
Discharge Orders:
Discharge Patient (As Directed); Ordered 10/30/24
Ordered By: Keven Gold
Care Plan Goals
Care Plan Goals:
Problem: Readiness for enhanced knowledge related to diagnosis and treatment plan
Goal: Understand your diagnosis and treatment plan needs, including medications if applicable.
Instructions: Know your diagnosis, underlying causes and treatment plan options, including medications if applicable. Consult with your health care team to learn about your diagnosis and treatment plan, including medications if applicable.
Discharge Date and Time
Discharge Date/Time: 10/30/24 14:30
Print Language: ARMENIAN
== END 2024-10-30 14:30 | disposition home or self-care (01) | DRG 310 ==
LOC: IVU 13:21
PROVIDERS: Physician Assistant; Physician Assistant Medical; ADMITTING PHYSICIAN Hospitalist; CONSULT PHYSICIAN Internal Medicine Cardiovascular Disease; EMERGENCY PHYSICIAN Emergency Medicine; FAMILY PHYSICIAN Family Medicine
PROC: 3E033HZ Introduction of Radioactive Substance into Peripheral Vein, Percutaneous Approach (ICD-10-PCS; 2024-10-30)
PROC: 4A12XM4 Monitoring of Cardiac Stress, External Approach (ICD-10-PCS; 2024-10-30)
DX: I48.0 Paroxysmal atrial fibrillation (principal); Z79.01 Long term (current) use of anticoagulants; Z79.899 Other long term (current) drug therapy; Z87.891 Personal history of nicotine dependence; Z96.653 Presence of artificial knee joint, bilateral; E78.5 Hyperlipidemia, unspecified; G89.29 Other chronic pain; I10 Essential (primary) hypertension
CPT/HCPCS: 71045; 78452; 80048; 80053; 83735; 84443; 84484; 85025; 85027; 93005; 93017; 96361; 96374; 96376; 99291; A9500; J2785

== ENCOUNTER 2024-10-31 12:45 | Emergency (ER) | payer OTHER, SELFPAY ==
[2024-10-31] VITALS (11 sets, daily range): BP systolic 95–153; BP diastolic 67–102; BMI 24.7
--- NOTE | 2024-10-31 13:07 | ED.GENMED ---
History of Present Illness
General
Chief Complaint: Heart Rate Problem
Time Seen by Provider: 10/31/24 13:07
History of Present Illness
History of Present Illness:
TIME OF INITIAL EVALUATION
- 1:20 PM
REVIEW OF OLD RECORDS
- The patient has a history of A-fib. She was seen here 2 days ago and was on IV meds for atrial fibrillation and was discharged on Eliquis and twice daily metoprolol. She had a Lexiscan nuclear stress test which showed no significant ischemia and
EF of 70%. She was started on Eliquis 10/14/2024 when EKG captured A-fib for the first time. Toprol XL 25 mg was added on 10/21/2024
Note:
CHIEF COMPLAINT(S)
Recurrent atrial fibrillation.
HISTORY OF PRESENT ILLNESS
The patient is an 83-year-old female with a history of atrial fibrillation, who presents with an episode of atrial fibrillation that started abruptly at noon today. She was recently hospitalized for 14 hours during which she was administered
diltiazem (Cartizem) and successfully converted back to normal sinus rhythm. Her current episode began despite adherence to anticoagulation therapy with apixaban (Eliquis), which she has been taking since October 14, initially at a dosage of 2.5 mg,
now increased to 5 mg, and metoprolol, which was increased from 25 mg to 50 mg daily since October 21. She recently underwent a stress test using nuclear medicine, which showed no abnormalities in heart function or blockages. She is concerned about
her heart rhythm and is inquiring about the potential need for electrical cardioversion.
ADDITIONAL HISTORY OBTAINED FROM SOURCES OTHER THAN THE PATIENT
According to family history, the patient adhered to changes in her medication as prescribed by her shuttle car operator.
MEDICATIONS
- Apixaban 5 mg daily
- Metoprolol 50 mg daily
PHYSICAL EXAM
- General: Well appearing in no distress
- HEENT: Moist oral mucosa
- Cardiovascular: No murmurs, tachycardic heart rate, irregular rhythm, No chest wall tenderness
- Pulmonary: No respiratory distress, breath sounds are clear and equal
- Abdomen: Soft with no peritoneal signs, no tenderness
- Neurologic: Excellent strength all extremities, no coordination deficits
- Psychiatric: Appropriate mental status but is agitated at times
- Extremities: Nontender, no edema, moves all extremities equally
- Skin: No rash, no lesions
PLAN
Discuss the plan with cardiology regarding potential electrical cardioversion and continue treatment with diltiazem to monitor the effectiveness in converting the atrial fibrillation.
DIFFERENTIAL DIAGNOSIS
The Differential Diagnosis includes, in no particular order and is not limited to:
- Atrial fibrillation
- Atrial flutter
- Paroxysmal supraventricular tachycardia
- Ventricular tachycardia
- Ischemic heart disease
- Hypertensive heart disease
- Heart failure
- Hyperthyroidism
- Electrolyte imbalance
- Medication-induced arrhythmia
RADIOLOGY
- Not indicated
EKG
- A-fib/flutter rate of 143
LABS
- CBC normal, BUN 27, creatinine 0.7
UPDATE
-I discussed case with Dr. Hernandez at 2:05 PM
- The patient converted while on Cardizem drip in the emergency department
MEDICATION RECONCILIATION
Amiodarone was considered for prescription by Dr. Hernandez, anticipated to be sent to the patients pharmacy.
MEDICAL DECISION MAKING
Chronic conditions affecting care: Atrial fibrillation.
Discussion of care/test interpretation: Discussion with Dr. Hernandez regarding medication adjustment to amiodarone for heart rhythm management.
PLAN
Conduct another EKG and consider discharge post-evaluation.
PATHOLOGIES TO CONSIDER
- Atrial fibrillation
- Atrial flutter
- Paroxysmal supraventricular tachycardia
Past History
Past History
ED Past Medical History: Other (Chronic back pain, COVID)
ED Past Surgical History: Other (Bilateral total knee replacement, back surgeries times 07/02/1992, 2005, tubal ligation, tonsillectomy, foot surgery on the left.)
Patient has exhibited threatening behavior?: No
Social History
Tobacco: Former smoker
Alcohol: Occasional
Drug: None
Personal:
Living: with family
Employment: Retired
Family History
Family History: Other (Not pertinent)
Phy Exam
Physical Exam
Physical Exam:
See HPI
Course
Orders/Labs/Results
Orders:
Orders
10/31/24 12:46
EKG [Electrocardiogram (*1)] Urgent
Reason for Study: Atrial Fibrillation
EKG- Treatment ONCE
10/31/24 13:11
Diltiazem HCl [Cardizem] 10 mg IV NOW STA
10/31/24 13:15
Diltiazem 125 mg/125 ml Nss [Cardizem] 125 mg in 125 ml IV PER PROTOCOL
Initial dose in mg/hr, then titrate:: 5
Titrate to keep:: Heart rate 80-100 bpm
Titrate by mg/hr:: 5 mg/hr
Frequency of titrations (minutes):: 15
Maximum dose in mg/hr:: 15
10/31/24 13:19
Complete Blood Count/With Diff Urgent
Comprehensive Metabolic Panel Urgent
Magnesium Urgent
10/31/24 13:26
Troponin I Urgent
10/31/24 14:57
EKG [Electrocardiogram (*1)] Urgent
Reason for Study: Other
Other Reason for Exam: a fib conversion to sinus rhythm
EKG- Treatment ONCE
Abnormal Lab Results
10/31/24
13:19
Absolute Monos (auto) 0.8 H 10^3/uL
(0.1-0.6)
Chloride 111 H mmol/L
(98-107)
Carbon Dioxide 21 L mmol/L
(22-30)
BUN 27 H mg/dl
(7-17)
Calcium 10.5 H mg/dl
(8.4-10.2)
06/20/25 13:19
10/31/24 13:19
Vital Signs
Initial and Last Documented VS:
Initial Vital Signs
Temp Pulse Resp BP Pulse Ox
36.3 C 86 16 114/81 100
10/31/24 12:55 10/31/24 12:55 10/31/24 12:55 10/31/24 12:55 10/31/24 12:55
Last Documented Vital Signs
Temp Pulse Resp BP Pulse Ox
36.3 C 55 13 113/82 98
10/31/24 12:55 10/31/24 14:45 10/31/24 14:45 10/31/24 14:30 10/31/24 14:45
*Pulse Oximetry
SaO2: 100
Oxygen Mode of Delivery: Room air
Patient hypoxic: no
*Fisheries Specialist Interpretation
Rate: tachycardiac
Interpretation: abnormal
Heart Rate: 140
Rhythm: a-fib
*Critical Care Note
Total Time (30-74mins, 75-104mins- exclusive of procedures): Not Applicable
ED Attending Note
-
Portions of this chart may have been created with voice recognition software.� Occasional wrong word or��sound alike� substitutions may have occurred due to the inherent limitations of voice recognition software.
Discharge Plan
Departure
Prescriptions:
No Action
magnesium glycinate 100 mg Tablet
400 mg PO HS
Eliquis 5 mg Tablet
5 mg PO BID Qty: 60 0RF
metoprolol succinate 25 mg Tablet Extended Release 24 Hr
25 mg PO BID Qty: 60 0RF
pantoprazole [Protonix] 40 mg tablet,delayed release (DR/EC)
40 mg PO DAILY PRN (Reason: acid reduction) Qty: 60 0RF
Referrals:
Yenni Smart MD [Family Provider, Family Practice]
Interventions
Interventions:
*Risk Screen - Suicide Last Done: 10/31/24 14:27
*General Assessment Last Done: 10/31/24 14:27
*Neglect/Abuse Screening Last Done: 10/31/24 14:27
*ED- Fall Risk Assessment Last Done: 10/31/24 12:55
*ED COVID-19 Vaccine History Last Done: 10/31/24 12:55
ED- Cardiac Assessment Last Done: 10/31/24 13:30
ED- Pulmonary Assessment Last Done: 10/31/24 13:30
Discharge Date and Time
Print Language: ROMANIAN
[2024-10-31] MEDS: CARDIZEM 10 MG IV (13:29)
[2024-10-31] MEDS: CARDIZEM 125 IV (13:30)
[2024-10-31 13:31] LABS: % Basophils 0.5 % (0-2); % Eosinophils 2.4 % (0-6); % Immature Granulocytes 0.4 % (0-0.5); % Lymphocytes 24.6 % (20.5-51.1); % Monocytes 9.2 % (1.7-9.3); % Neutrophils 62.9 % (42.2-75.2); Absolute Eosinophils 0.2 10^3/uL (0-0.7); Absolute Lymphocytes 2.1 10^3/uL (1.2-3.4); Absolute Monocytes 0.8 10^3/uL (0.1-0.6); Absolute Neutrophils 5.3 10^3/uL (1.4-6.5); Hematocrit 41.7 % (37.0-47.0); Hemoglobin 14.4 g/dL (12.0-16.0); Mean Corp Hgb Conc. 34.5 g/dL (33.0-37.0); Mean Corpuscular Hgb 30.4 pg (27.0-31.0); Nucleated Red Blood Cells % 0 %; Platelet Count 329 10^3/uL (130-400); Red Blood Cell Count 4.74 10^6/uL (4.20-5.40); Red Cell Dist. Width 13.1 % (11.5-14.5); White Blood Cell Count 8.4 10^3/uL (4.8-10.8)
[2024-10-31 13:56] LABS: ALT (SGPT) 17 U/L (0-35); AST (SGOT) 22 U/L (14-36); Albumin 4.5 g/dl (3.5-5.0); Alkaline Phosphatase 92 U/L (38-126); Blood Urea Nitrogen 27 mg/dl (7-17); Calcium 10.5 mg/dl (8.4-10.2); Carbon Dioxide 21 mmol/L (22-30); Chloride 111 mmol/L (98-107); Glucose 90 mg/dl (70-99); Magnesium 2.3 mg/dl (1.6-2.3); Potassium 4.2 mmol/L (3.5-5.1); Sodium 141 mmol/L (135-145); Total Bilirubin 0.5 mg/dl (0.2-1.3); Total Protein 7.1 g/dl (6.3-8.2); eGFR > 60.00
--- NOTE | 2024-10-31 14:03 | EDRN ---
Patient reeducated on how to take her medication. Patient was taking metoprolol 50mg twice a day instead of 25mg twice a day. Patient and both understand the correct dosage and how to take medication.
[2024-10-31 14:19] LABS: Troponin I < 0.012 ng/ml
--- NOTE | 2024-10-31 14:55 | CON.CAR ---
Addendum entered and electronically signed by Dimitry Hernandez MD 10/31/24 15:27:
I saw and examined the patient.
The LIGHTING SPECIALIST or PA's note was reviewed and I agree with the note.
Comment: General: Well developed, well nourished in NAD.
Neck: Supple, no JVD, HJR, carotids +2 B/L, no bruits bilaterally.
Heart: Non displaced PMI, RRR, no murmurs, No S3, S4, no rubs.
Lungs: Clear to auscultation bilaterally, no wheeze, rhonchi, rubs bilaterally,
normal expiratory phase.
Extremities: No clubbing, cyanosis or edema bilaterally.
Neuro: Grossly nonfocal, awake, alert and oriented x3.
She has a history of atrial fibrillation on Eliquis, hyperlipidemia. She was admitted from October 29, 2024 to October 30, 2004 with A-fib which spontaneously converted to sinus rhythm on Cardizem drip. She had a stress test that was negative for
ischemia. She presents out very poorly and back in A-fib. She has spontaneously converted to sinus rhythm IV Cardizem again.
Will add amiodarone 200 mg twice daily in an attempt to keep in sinus rhythm. Will decrease Toprol to 25 mg daily. Will move up office appointment. She may still have A-fib this will take several days for amiodarone to load. Could consider
ablation with recurrent symptoms.
Original Note:
Consultation
Consultation Request
Date/Time Consultation Requested: 10/31/2024
Date/Time Consultation Performed: 10/31/2024
Requesting Provider: Dr. Walker
Performing Provider: Monalisa Hodges PA-C for Dr. Hernandez
Reason for Consultation: Recurrent Afib w/ RVR
Medical History
-
History of Present Illness:
HPI: Kylah is an 83 year old female with PMH of paroxysmal atrial fibrillation and HLD. She presented to [facility] after recent hospitalization for recurrent atrial fibrillation. She was hospitalized 10/29/2024 to 10/30/2024 with afib and spontaneously
converted to SR while on Cardizem gtt. She had stress test which was unremarkable and felt well, so was discharged. She then had recurrent afib today, less than 24 hours after discharge and felt poorly with HR into the 140s and SOB with dizziness.
Symptoms persisted, so she came to ER where she was noted to be in rapid afib. In ER was placed on cardizem gtt @ 10 and spontaneously converted to SR again during this history and assessment. Feels much improved w/ pentecostal of SR. She has been
compliant with Eliquis and denies any missed doses. Currently back in SR she has no complaints other than feeling somewhat tired.
PMH:
Paroxysmal Afib
new diagnosis 10/14/24
Chronic Eliquis OAC started 10/14/24
Hyperlipidemia
Past Medical History
Past Medical History: Other (in HPI)
Past Surgical History: Other (in HPI)
Social History
Tobacco: Former Smoker
Alcohol: Occasional (a couple a week)
Drug: None
Personal:
Living: With Family
Family History
Family History: CAD and Cancer
Allergies / Home Medications
Allergy/AdvReac Type Severity Reaction Status Date / Time
No Known Allergies Allergy Verified 10/29/24 09:09
�Medication �Instructions �Recorded �Confirmed �Type
magnesium glycinate 100 mg (as 400 mg PO HS 10/29/24 10/29/24 History
glycinate) tablet
apixaban 5 mg tablet (Eliquis) 5 mg PO BID #60 tabs 10/30/24 Rx
metoprolol succinate 25 mg 25 mg PO BID #60 tabs 10/30/24 Rx
tablet,extended release 24 hr
pantoprazole 40 mg tablet,delayed 40 mg PO DAILY PRN acid reduction 10/30/24 Rx
release (Protonix) #60 tabs
Review of Systems
-
History Source: Patient
All other systems: Negative unless noted
Physical Exam
Vital Signs
Temp Pulse Resp BP Pulse Ox
97.4 F 55 13 113/82 98
10/31/24 12:55 10/31/24 14:45 10/31/24 14:45 10/31/24 14:30 10/31/24 14:45
Lab Results
10/31/24 13:19
10/31/24 13:19
Troponin I < 0.012 ng/ml 10/31/24 13:26
Physical Exam
General: Well Developed, Well Nourished and No Apparent Distress
HEENT: Normocephalic, Anicteric and Moist Mucous Membranes
Respiratory: Clear and Non Labored Respirations
Cardiac: Regular Rhythm
Musculoskeletal: No Clubbing, No Cyanosis and No Edema
Skin: Warm and Dry
Neuro: AO x 3 and Nonfocal/Grossly Intact
Psych: Calm
Impression / Plan
-
PCP: Dr. Yenni Ellsworth
Rolling Up Machine Operator: Dr. Mccracken
Impression:
Presented with SOB, dizziness
Paroxysmal Afib, w/ RVR, spontaneously converted to SR
new diagnosis 10/14/24
Chronic Eliquis OAC started 10/14/24
Hyperlipidemia
Echo 10/29/2023: EF 55-60, normal RV systolic function, normal atrial dimensions with mildly dilated coronary sinus, aortic sclerosis without stenosis, trivial MR, mild TR with PAP 29 mmHg, LV wall 0.9 cm
Plan:
-Recent admission noted with rapid A-fib 10/29/2024 to 10/30/2024. Converted to SR during this admission on Cardizem drip and discharged on Toprol 25 mg twice daily. This afternoon had recurrent rapid A-fib and felt poorly. Symptoms persisted,
prompting ER evaluation.
-Initial EKG reviewed, rapid A-fib with heart rate in the 140s.
-Started on Cardizem drip in ER and spontaneously converted to SR during this history. Noted complete symptom resolution with pentecostal of sinus rhythm.
-Given significance of symptoms while in A-fib, will start amiodarone 200 mg twice daily in an attempt to maintain sinus rhythm. QTc stable in SR at 422 ms by EKG 10/31.
-Continue uninterrupted Eliquis 5 mg twice daily.
-Somewhat bradycardic in SR. Will reduce Toprol to 25 mg daily with starting amiodarone
-K stable at 4.2.
-Troponin negative x 1.
-Follow-up appointment arranged with EP physician to discuss long-term management options for atrial fibrillation.
HPI: Kylah is an 83 year old female with PMH of paroxysmal atrial fibrillation and HLD. She presented to [facility] after recent hospitalization for recurrent atrial fibrillation. She was hospitalized 10/29/2024 to 10/30/2024 with afib and spontaneously
converted to SR while on Cardizem gtt. She had stress test which was unremarkable and felt well, so was discharged. She then had recurrent afib today, less than 24 hours after discharge and felt poorly with HR into the 140s and SOB with dizziness.
Symptoms persisted, so she came to ER where she was noted to be in rapid afib. In ER was placed on cardizem gtt @ 10 and spontaneously converted to SR again during this history and assessment. Feels much improved w/ pentecostal of SR. She has been
compliant with Eliquis and denies any missed doses. Currently back in SR she has no complaints other than feeling somewhat tired.
Data Reviewed
-
EKG: Tracing Personally Visualized and interpreted
Labs: Labs Reviewed by me
Old Records: Reviewed
== END 2024-10-31 15:39 | disposition home or self-care (01) ==
LOC: EMR 12:45
PROVIDERS: EMERGENCY PHYSICIAN Emergency Medicine; FAMILY PHYSICIAN Family Medicine; OTHER PHYSICIAN Internal Medicine Cardiovascular Disease
DX: I48.0 Paroxysmal atrial fibrillation (principal); E78.5 Hyperlipidemia, unspecified; Z79.01 Long term (current) use of anticoagulants; Z79.899 Other long term (current) drug therapy; Z87.891 Personal history of nicotine dependence
CPT/HCPCS: 99284; 96374; 80053; 83735; 84484; 85025; 93005; 99285

== ENCOUNTER 2024-11-25 12:11 | Emergency (ER) | payer OTHER, SELFPAY ==
[2024-11-25] VITALS (7 sets, daily range): BP systolic 115–139; BP diastolic 66–80; BMI 24.6
[2024-11-25 13:01] LABS: Hematocrit 39.0 % (37.0-47.0); Hemoglobin 13.1 g/dL (12.0-16.0); Mean Corp Hgb Conc. 33.6 g/dL (33.0-37.0); Mean Corpuscular Volume 90.1 fL (81.0-99.0); Nucleated Red Blood Cells % 0 %; Platelet Count 328 10^3/uL (130-400); Red Cell Dist. Width 13.1 % (11.5-14.5)
[2024-11-25 13:13] LABS: ALT (SGPT) 16 U/L (0-35); AST (SGOT) 20 U/L (14-36); Albumin 4.1 g/dl (3.5-5.0); Alkaline Phosphatase 75 U/L (38-126); Blood Urea Nitrogen 23 mg/dl (7-17); Calcium 10.0 mg/dl (8.4-10.2); Carbon Dioxide 25 mmol/L (22-30); Chloride 109 mmol/L (98-107); Estimated Creatinine Clearance 60 ml/min; Glucose 97 mg/dl (70-99); Potassium 4.2 mmol/L (3.5-5.1); Sodium 139 mmol/L (135-145); Total Protein 6.7 g/dl (6.3-8.2); eGFR > 60.00
--- NOTE | 2024-11-25 13:24 | ED.GENMED ---
History of Present Illness
General
Chief Complaint: Heart Rate Problem
Source: patient and spouse
Exam Limitations: none
Time Seen by Provider: 11/25/24 13:24
History of Present Illness
History of Present Illness:
Patient is here with 2 primary complaints. Ongoing pressure in her head that started the last few days. This was a diffuse nonspecific pressure purely not the worst headache of her life or sudden onset. In addition this morning she complained of
some upper chest pressure and has been having some upper back pain. No shearing pain no severe pain. She had the chest discomfort this morning it then resolved and recurred again. No radiation to the arm no shortness of breath. She has had a
history of similar issues in the past but usually related to her atrial fibrillation. Her heart rate monitor showed a slow heart rate. However no syncope near syncope or other complaints
Past History
Past History
ED Past Medical History: Other (Chronic back pain, COVID)
ED Past Surgical History: Other (Bilateral total knee replacement, back surgeries times 07/02/1992, 2004, tubal ligation, tonsillectomy, foot surgery on the left.)
Patient has exhibited threatening behavior?: No
Social History
Tobacco: Former smoker
Alcohol: Occasional
Drug: None
Personal:
Living: with family
Employment: Retired
Family History
Family History: Other (Not pertinent)
Review of Systems
Review of Systems
All Other Systems: Not applicable
Constitutional: Denies fever
Respiratory: Reports no symptoms
ABD/GI: Reports no symptoms
Phy Exam
Physical Exam
Physical Exam:
GENERAL: Alert and oriented in no apparent distress
EYE: Orbits normal.
NECK: Supple, no carotid bruit
ENT: Pharynx without erythema
CARDIAC: Bradycardic and regular no murmur
LUNGS: Clear breath sounds,normal
ABDOMEN: Soft, without focal tenderness or distention
NEUROLOGICAL: Alert and oriented , cranial nerves II through XII intact. Speech normal. [id number] normal. Light touch intact.
SKIN: Warm and dry, no rash or lesion, no discoloration, skin intact.
MUSCULOSKELETAL: No edema,no deformity.Good color
PSYCH: Normal and appropriate interaction.
Course
Orders/Labs/Results
Orders:
Orders
11/25/24 12:12
EKG [Electrocardiogram (*1)] Urgent
Reason for Study: Palpitations
EKG- Treatment ONCE
11/25/24 12:24
Cardiac Monitoring- Treatment ONCE
IV Insert/Care/Rem.- Treatment PRN
O2 Therapy [RESP] Urgent
Titrate/Wean O2 to maintain O2 sat greater than (%): 90
Special Instructions: Maintain sats >/=90%
Pulse Ox/spot Check [RESP] Urgent
Quantity: 1
Special Instructions: ON ROOM AIR
11/25/24 12:49
Complete Blood Count/With Diff Urgent
Comprehensive Metabolic Panel Urgent
Troponin I Urgent
11/25/24 13:37
CT Head W/o Iv Contrast Urgent
Comment:
Reason For Exam: Headache/anticoagulated
CXR2 [CR Chest - 2 Views ] Urgent
Comment:
Reason For Exam: Upper chest pressure
11/25/24 15:36
Electrocardiogram (*1) Stat
Reason for Study: Other
Other Reason for Exam: chest pain
EKG- Treatment ONCE
11/25/24 16:04
Troponin I Urgent
Abnormal Lab Results
11/25/24
12:49
Absolute Neuts (auto) 6.6 H 10^3/uL
(1.4-6.5)
Lymphocytes % 17.7 L %
(20.5-51.1)
Chloride 109 H mmol/L
(98-107)
BUN 23 H mg/dl
(7-17)
11/25/24 12:49
11/25/24 12:49
Vital Signs
Initial and Last Documented VS:
Initial Vital Signs
Temp Pulse Resp BP Pulse Ox
98.1 F 52 18 119/74 100
11/25/24 12:21 11/25/24 12:21 11/25/24 12:21 11/25/24 12:21 11/25/24 12:21
Last Documented Vital Signs
Temp Pulse Resp BP Pulse Ox
97.7 F 50 18 137/74 97
11/25/24 18:01 11/25/24 18:01 11/25/24 18:01 11/25/24 18:01 11/25/24 18:01
MDM/Problems Addressed
Differential Diagnosis Includes:
Patient presents complaining of mostly a pressure in her head that has been ongoing for days with a benign neurologic exam. She is however anticoagulated. Very low suspicion for intracranial bleed or stroke. She has no acute findings to support
stroke. We will CT her head however for completeness. As for this pressure in her upper chest and upper back. Very low suspicion for dissection. Nonexertional. Normal EKG and negative troponin. Will repeat that in 3 hours. Will discuss with
cardiology
*Pulse Oximetry
SaO2: 100
Oxygen Mode of Delivery: Room air
Patient hypoxic: no
*EKG
Interpreted by ED Provider?: Yes
Interpretation: abnormal
Comparison EKG: changes noted
Heart Rate: 54
Rate: bradycardiac
Rhythm: sinus and PAC's
[place]: normal axis
Interval: normal interval
QRS Pattern: low voltage
Ischemia: non-specific ST changes
*Critical Care Note
Total Time (30-74mins, 75-104mins- exclusive of procedures): Not Applicable
Data Reviewed
Review of Other/Old Records Reveals: Labs, Records, Testing and Discharge Summary
Update Note
Update Note:
Repeat EKG sinus bradycardia at 50 with no acute changes. Patient has remained stable and nontoxic. Repeat troponin negative. Discharged to follow-up closely with cardiology. Cardiology was contacted
ED Attending Note
-
Portions of this chart may have been created with voice recognition software.� Occasional wrong word or��sound alike� substitutions may have occurred due to the inherent limitations of voice recognition software.
Discharge Plan
Departure
Patient Disposition: Home (Routine Discharge)
Date of Disposition: 11/25/24
Time of Disposition: 18:02
Patient with high blood pressure during this ER visit?: Yes
Discharge Problem:
Chest pain/headache, History of atrial fibrillation
Instructions: Headaches in adults, Chest Pain [facility] Follow Up
Prescriptions:
No Action
magnesium glycinate 100 mg Tablet
400 mg PO HS
Eliquis 5 mg Tablet
5 mg PO BID Qty: 60 0RF
pantoprazole [Protonix] 40 mg tablet,delayed release (DR/EC)
40 mg PO DAILY PRN (Reason: acid reduction) Qty: 60 0RF
amiodarone 200 mg tablet
200 mg PO BID Qty: 60 0RF
metoprolol succinate 25 mg Tablet Extended Release 24 Hr
25 mg PO DAILY Qty: 60 0RF
Referrals:
Yenni Smart MD [Family Provider, Family Practice] - Follow up in 2-3 days
Interventions
Interventions:
*Risk Screen - Suicide Last Done: 11/25/24 12:21
*General Assessment Last Done: 11/25/24 12:24
*Neglect/Abuse Screening Last Done: 11/25/24 12:21
*ED- Fall Risk Assessment Last Done: 11/25/24 12:24
ED- Cardiac Assessment Last Done: 11/25/24 15:14
ED- Pulmonary Assessment Last Done: 11/25/24 12:24
Discharge Date and Time
Print Language: NORWEGIAN
[2024-11-25 13:25] LABS: Troponin I < 0.012 ng/ml
[2024-11-25 16:40] LABS: Troponin I < 0.012 ng/ml
== END 2024-11-25 19:00 | disposition home or self-care (01) ==
LOC: EMR 12:11
PROVIDERS: Emergency Medicine; EMERGENCY PHYSICIAN Emergency Medicine; FAMILY PHYSICIAN Family Medicine; OTHER PHYSICIAN Internal Medicine Cardiovascular Disease
DX: R07.89 Other chest pain (principal); R51.9 Headache, unspecified; I48.91 Unspecified atrial fibrillation; Z87.891 Personal history of nicotine dependence; Z79.01 Long term (current) use of anticoagulants
CPT/HCPCS: 99285; 70450; 71046; 80053; 84484; 85025; 93005

== ENCOUNTER → 2024-12-31 13:56 | Outpatient (REF) | payer OTHER, SELFPAY | LOC: RCS 13:56 | PROVIDERS: ATTENDING PHYSICIAN Internal Medicine Cardiovascular Disease; FAMILY PHYSICIAN Family Medicine | DX: I48.0 Paroxysmal atrial fibrillation (principal); E04.1 Nontoxic single thyroid nodule | CPT/HCPCS: 76536; 93306 ==

== ENCOUNTER 2025-01-06 05:52 | Day surgery (SDC) | payer OTHER, SELFPAY ==
[2024-12-22 07:54] VITALS: BMI 25.4
[2024-12-22 08:16] LABS: Hematocrit 39.1 % (37.0-47.0); Hemoglobin 12.9 g/dL (12.0-16.0); Mean Corp Hgb Conc. 33.0 g/dL (33.0-37.0); Mean Corpuscular Volume 91.6 fL (81.0-99.0); Nucleated Red Blood Cells % 0 %; Platelet Count 344 10^3/uL (130-400); Red Cell Dist. Width 13.2 % (11.5-14.5)
[2024-12-22 08:26] LABS: INR 1.17; PT 15.2 Sec (11.4-14.6)
[2024-12-22 08:44] LABS: ALT (SGPT) 16 U/L (0-35); AST (SGOT) 19 U/L (14-36); Albumin 4.1 g/dl (3.5-5.0); Alkaline Phosphatase 76 U/L (38-126); Blood Urea Nitrogen 22 mg/dl (7-17); Calcium 9.7 mg/dl (8.4-10.2); Carbon Dioxide 28 mmol/L (22-30); Chloride 108 mmol/L (98-107); Estimated Creatinine Clearance 51 ml/min; Glucose 92 mg/dl (70-99); Magnesium 2.1 mg/dl (1.6-2.3); Potassium 4.1 mmol/L (3.5-5.1); Sodium 141 mmol/L (135-145); Total Protein 6.6 g/dl (6.3-8.2); eGFR > 60.00
[2025-01-06] VITALS (12 sets, daily range): BP systolic 105–143; BP diastolic 58–78; BMI 25.4
--- NOTE | 2025-01-06 07:26 | ITS.CL.ABL ---
Complaint Operator - Ablation
Ablation
Procedure Report:
Primary Sternman: Dr Benjamin Mccracken
Procedure Date: 01/06/2025
Patient History:
Patient is a pleasant 84-year-old female with a past medical history significant for osteoarthritis, seasonal allergies, valvular heart disease, hypertension, and symptomatic paroxysmal atrial fibrillation.
See H&P for complete details.
Indication:
Symptomatic paroxysmal atrial fibrillation
Recurrence despite antiarrhythmic medical therapy
Failure of antiarrhythmic medical therapy
Arrhythmia Specific History:
Prior Medical Therapies for Rate and Rhythm Control:
X Beta-linda
[ ] Calcium channel-linda
X Amiodarone
[ ] Dronederone
[ ] Sotalol
[ ] Flecainide
[ ] Dofetilide
X Options limited by bradycardia
[ ] Options limited by comorbid renal disease
Prior Procedural Therapies for AF/AFL:
[ ] Cardioversion
[ ] Pulmonary Vein Isolation
[ ] Posterior Wall Isolation
[ ] Additional lines (Specify)
[ ] Surgical Fong-MAZE or PVI (Specify)
Procedure Performed:
X AF ablation procedure (87460) -- includes LA/CS pacing, trans-septal, 3D mapping, + ICE
[ ] +IV drug (10343)
[ ] +Other Arrhythmia (15686)
[ ] +Other AF Line/ablation (69071)
Risks and expected recovery has been explained in detail. Alternative options have been explored, and in a shared-decision making fashion we have decided that this was the most appropriate procedure.
Method
NPO status confirmed. Grounding pad applied. Defibrillator pads applied. Continuous surface ECG, pulse oximetry, and blood pressure were monitored. Procedure was performed under general anesthesia, with anesthesia services.
Both groins were clipped, prepped with Chloraprep, and draped in sterile fashion. Time out was called. Local anesthesia administered. The right femoral vein was accessed for catheter placement, using ultrasound guidance (images saved to record),
micro-puncture needle/wire, and modified seldinger technique. 3 sheaths were placed. The following catheters were used:
[ ] Tacticath SE (D/F Curve) ablation catheter
X Viewflex 9Fr ICE catheter
X Inquiry decapolar 6Fr diagnostic catheter
[ ] CRD Hex 6Fr
X FlexCath Contour 10 Fr with PulseSelect PFA Catheter
X Advisor HD Grid Mapping Catheter, SE
[ ] Acuson AcuNav 8 Fr ICE catheter
[ ]Other: [ ]
Intracardiac ultrasound (ICE) was carefully advanced into the right atrium to guide sheath placement over a J-wire, catheter placement, guide trans-septal puncture, identify potential complications, identify anatomic structures and ensure proper
contact between ablation catheter and tissue. A trace basal LV pericardial effusion was noted at the initiation of case. This remained unchanged throughout the procedure and at case completion.
Heparin was given prior to trans-septal puncture. Heparin was given to achieve and maintain a target ACT of 300-400 seconds throughout the procedure.
Trans-septal access was performed under ICE guidance. The trans-septal puncture was performed with a SafeSept wire through a Brockenbrough needle assembly through the steerable sheath. The wire was visualized as it entered the LSPV and system
advanced under ICE guidance and fluoroscopy into the LA. The Brockenbrough needle assembly, SafeSept wire and sheath dilator were removed under negative pressure. LA pressure was measured and recorded.
ICE and 3D mapping was performed to identify relevant cardiac structures. A careful 3D map was created to assess for regions of low-voltage and abnormal electrogram signals using HD grid mapping catheter and PulseSelect catheter. Additional mapping
was performed as outlined below.
Prior to ablation, glycopyrrolate was provided. PulseSelect catheter was advanced over J-wire to the ostium of each vein. Pulmonary vein isolation was performed with ostial and antral lesions in a circumferential manner. Contact was visualized via
EAM, ICE, fluoroscopy, and EGM signals.
Following completion of ablation lesions, a post-ablation voltage/activation map was performed in sinus rhythm. Entrance and exit block were confirmed for each vein.
Catheter and sheath were removed from the left atrium and post-ablation intracardiac echo evaluation was consistent with pre-ablation with no changes and no pericardial effusion and there is no left atrial thrombus or left ventricle thrombus seen.
Electrophysiology study was performed. Hemostasis was obtained with Vascade for each sheath and with manual pressure. Protamine was used for reversal.
Estimated Blood Loss
5 mL
Complications
None
Fluoroscopy: 7.0 minutes; 20.93 mGy; DAP 2.7
LA Pressure: Pre 6 mmHg, post 10 mmHg
Baseline Intervals:
Rhythm: SR
FL: 173 ms
QRS: 95 ms
QT: 469 ms
QTc: 451 ms
A-A: 1081 ms
R-R: 1081 ms
Post-Procedure Intervals:
FL: 151 ms
QRS: 95 ms
QT: 486 ms
AVWB: 390 ms
AERP: 600/260 ms
Recommendations
- Bedrest with straight-leg precautions as ordered
- Anticipate same day discharge if patient meeting clinical metrics
- Resume home medications as indicated
- Ok to resume anticoagulation tonight if patient and groin sites stable; continue uninterrupted OAC for 3 months
- PPI daily for 30 days
- Plan for follow-up in office as scheduled
Mark Soto, , FACC, RS
Clinical Cardiac Call Centre Supervisor
cc: Dr Benjamin Mccracken; Dr Yenni Smart
[2025-01-06 08:40] LABS: ACT-LR - POC 255 Seconds (116-155)
[2025-01-06 09:07] LABS: ACT-LR - POC 335 Seconds (116-155)
[2025-01-06 09:24] LABS: ACT-LR - POC 345 Seconds (116-155)
[2025-01-06 09:41] LABS: ACT-LR - POC 360 Seconds (116-155)
[2025-01-06 10:09] LABS: ACT-LR - POC 158 Seconds (116-155)
[2025-01-06 11:11] LABS: ACT-LR - POC > 397 Seconds (116-155)
[2025-01-06] MEDS: TYLENOL 650 MG PO (11:15)
[2025-01-06] MEDS: ANESTHETIC LOZENGE 1 LOZENGE PO (11:56)
--- NOTE | 2025-01-06 13:05 | W.PN.UPDATE ---
Update Note
Progress Note Update
84 yo WF s/p PVI (Same day). She denies cp, sob, mild sore throat and back pain positionally, R fem site c/d/i Vascade, soft, EKG SR. She will resume Eliquis and stop Amiodarone. Activity restrictions reviewed. 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 She is
for d/c home after 1pm if groin stable
== END 2025-01-06 13:00 | disposition home or self-care (01) ==
LOC: CATH 05:52
PROVIDERS: ATTENDING PHYSICIAN Internal Medicine Cardiovascular Disease; FAMILY PHYSICIAN Family Medicine; OTHER PHYSICIAN Internal Medicine Cardiovascular Disease
DX: I48.0 Paroxysmal atrial fibrillation (principal); I10 Essential (primary) hypertension; E78.5 Hyperlipidemia, unspecified; I34.1 Nonrheumatic mitral (valve) prolapse; Z86.0100 Personal history of colon polyps, unspecified; M19.90 Unspecified osteoarthritis, unspecified site; Z96.653 Presence of artificial knee joint, bilateral; E04.1 Nontoxic single thyroid nodule; M85.80 Other specified disorders of bone density and structure, unspecified site; H91.90 Unspecified hearing loss, unspecified ear; Z87.891 Personal history of nicotine dependence; K59.09 Other constipation; G47.00 Insomnia, unspecified; Z79.899 Other long term (current) drug therapy; Z79.01 Long term (current) use of anticoagulants
CPT/HCPCS: C1760; C1733; C1769; C1894; 36415; 75572; 80053; 83735; 85025; 85347; 85610; 86850; 86900; 86901; 93005; 93656; C1732; C1766; Q9967

== ENCOUNTER → 2025-01-07 14:22 | Outpatient (REF) | payer OTHER, SELFPAY ==
[2025-01-07 14:42] VITALS: BP 137/71; BP_SYST 56
== END ==
LOC: RADI 14:22
PROVIDERS: ATTENDING PHYSICIAN Family Medicine; REFERRING PHYSICIAN Internal Medicine Cardiovascular Disease
DX: E04.1 Nontoxic single thyroid nodule (principal)
CPT/HCPCS: 10005; 88173

== ENCOUNTER → 2025-04-02 14:18 | Outpatient (REF) | payer OTHER, SELFPAY | LOC: RAD 14:18 | PROVIDERS: ATTENDING PHYSICIAN Family Medicine | DX: R05.1 Acute cough (principal) | CPT/HCPCS: 71046 ==